=== PATIENT | male | born 1955 | race Caucasian/White ===

== ENCOUNTER 2016-04-24 06:11 | Day surgery (SDC) | payer MEDICARE, BC ==
[~2016-04-24] VITALS: Ht 175.3 cm; Wt 84.1 kg
[~2016-04-24 06:11] MED LIST: HYDROCODON-ACE1 EAC7 PO
[2016-04-24] MEDS ORDERED: OMEPRAZOLE20 M1 PO (07:05)
[2016-04-24 07:08] VITALS: BP 129/82; Ht 175.3 cm; Wt 84.1 kg
[2016-04-24 07:16] LABS: HEMATOCRIT 44.7 % (42.0-54.0); MCH 30.1 pg (26.0-34.0); MCHC 33.6 g/dL (31.0-37.0); MCV 89.6 fL (80.0-100.0); MEAN PLATELET VOLUME 10.4 fL (7.4-10.4); RBC 4.99 10x6/uL (4.20-6.10); RDW 13.7 % (11.5-14.5); WBC 6.8 10x3/uL (4.8-10.8)
--- NOTE | 2016-04-24 09:04 | NUR ---
PAD TO RIGHT THIGH LOT NUMBER [id number] EXPIRES 2018-01-19
--- NOTE | 2016-04-24 10:48 | NUR ---
0945 IV DC WITH CATHER TIP INTACT
--- NOTE | 2016-06-01 09:40 | OP ---
PATIENT NAME: KAEL HUANG MEDICAL RECORD: [id number] :51 LOCATION:[facility] ADMISSION DATE: SURGEON: PIERRE FUCHS MD DATE OF OPERATION: 04/24/2016 PREOPERATIVE DIAGNOSIS: History of Gates esophagus. 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 I noted no residual of Gates's esophagus. Nodular duodenitis, mild. One gastric polyp, cardial, 7 mm x 6 mm sessile. PROCEDURE: 1. Esophagogastroduodenoscopy with antral and distal esophageal biopsies. 2. Gastric hot biopsy forceps polypectomy times 1. SURGEON: Pierre Fuchs MD CHEMICAL OPERATIONS SPECIALIST: None. BLOOD LOSS: Minimal. ANESTHESIA: Topical with IV anesthesia. COMPLICATIONS: None. The reason for the anesthesia staff being present during the procedure includes the possible need for airway manipulation, which was necessary during the procedure. The patient underwent endoscopy by me on 01/13/2015. At that time, the patient was found to have LA grade I distal esophagitis and I felt that he was a rule out Gates's patient. There was a questionable gastric polyp along the lesser curve at that time as well. The patient was placed on Nexium. The patient had adenomatous polyps at the time of colonoscopy, so his next colonoscopy should be in 3 years, which will be in 2018. The distal esophageal biopsies were consistent with Gates esophagus with mild chronic inflammation and negative for dysplasia. ENDOSCOPIC COURSE: The patient was conveyed to endoscopy suite electively on 04/24/2016. IV sedation was induced by the anesthesia staff. A topical spray anesthetic was used to anesthetize the oropharynx. A bite block was inserted. A gastroscope was inserted into the mouth. It was advanced easily into the hypopharynx. The esophagus was easily intubated as were the stomach and the duodenum. Upon withdrawal, retroflexed and angulus views were obtained. Antral biopsies were obtained. Distal esophageal biopsies were obtained. Within the stomach, a gastric polyp was noted. This was removed in its entirety utilizing a hot biopsy forceps polypectomy technique. The endoscope was then withdrawn under direct vision. I will see the patient back in my office in 2-3 weeks. I will plan for his next surveillance upper endoscopy to be in 2 years. His next colonoscopy needs to be in 2018 and this will be a surveillance colonoscopy. He needs to continue on PPI therapy as it appears to be improving his esophagitis, which I noted that there was none during today's endoscopy. Additionally, I saw a regression of OPERATIVE REPORT [id number] KAEL HUANG A Gates's. In fact, I identified no Gates's utilizing direct imaging or narrow band imaging. TRANSINT:[id number] Voice Confirmation ID: [id number] DOCUMENT ID: [id number] PIERRE FUCHS MD at 0940 CC: LOYDA CHIN DO [id number] DICTATION DATE: 04/24/16901 BID WRITER: 04/24/16 1534 [facility] 04/24/16 [place] [id number] [place] [address]
--- NOTE | 2016-06-01 09:40 | HP ---
PATIENT: KAEL HUANG MEDICAL RECORD: [id number] ACCOUNT: [id number] LOCATION:[facility] : 51 ADMISSION DATE: 04/24/16 HISTORY AND PHYSICAL EXAMINATION CHIEF COMPLAINT: Gates's esophagus. The patient is here for surveillance endoscopy. HISTORY OF PRESENT ILLNESS: The patient has been on omeprazole. His reflux is controlled on omeprazole. He is here for surveillance upper endoscopy with biopsies due to the history of Gates's. The risks, possible complications and alternatives of the procedure were explained to the patient. He elects to proceed. ALLERGIES: No known drug allergies. HOME MEDICATIONS: [place] as well as omeprazole. SOCIAL HISTORY: Nonsmoker. PAST MEDICAL AND SURGICAL HISTORY: Neck fusion at C5-C6, eye surgery, arthritis, gastroesophageal reflux. REVIEW OF SYSTEMS: Negative for CVA or seizures. Negative for diabetes or thyroid problems. Negative for renal disease or hepatitis. The review of systems is negative other than as is described above. PHYSICAL EXAMINATION: GENERAL: The patient does not appear acutely ill. He does not appear chronically ill. VITAL SIGNS: Reviewed. HEAD: External ears appear normal. EYES: Extraocular movements are intact. NECK: Trachea is midline. CHEST: No intercostal retractions. PULMONARY: Nonlabored and no stridor. IMPRESSION: Gates esophagus. PLAN: Will be surveillance upper endoscopy. TRANSINT:[id number] Voice Confirmation ID: [id number] DOCUMENT ID: [id number] OZZY FUCHS MD at 0940 CC: LOYDA CHIN DO [id number] DICTATION DATE: 04/24/16 0838 DEICER FINISHER: 04/24/16 1033 [facility] 04/24/[address] [address]
== END 2016-04-24 10:45 | disposition home or self-care (01) ==
LOC: D.OPS 06:11
PROVIDERS: Anesthesiology
DX: K22.70 Barrett's esophagus without dysplasia (principal); K29.80 Duodenitis without bleeding; K31.7 Polyp of stomach and duodenum; K21.9 Gastro-esophageal reflux disease without esophagitis; M19.90 Unspecified osteoarthritis, unspecified site; Z79.891 Long term (current) use of opiate analgesic; Z79.899 Other long term (current) drug therapy

== ENCOUNTER 2018-05-14 05:35 | Day surgery (SDC) | payer MEDICARE, BC ==
[~2018-05-14] VITALS: Ht 175.3 cm; Wt 83.9 kg
[~2018-05-14 05:35] MED LIST changes: +MOBIC7.5 MG PO; +OMEPRAZOLE20 M1 PO
[2018-05-14 06:16] LABS: HEMATOCRIT 46.1 % (42.0-54.0); HEMOGLOBIN 15.7 g/dL (13.5-17.5); MCH 30.6 pg (26.0-34.0); MCHC 34.1 g/dL (31.0-37.0); MCV 89.9 fL (80.0-100.0); MEAN PLATELET VOLUME 10.1 fL (7.4-10.4); RBC 5.13 10x6/uL (4.20-6.10); RDW 14.2 % (11.5-14.5); WBC 8.3 10x3/uL (4.8-10.8)
[2018-05-14] MEDS ORDERED: MAGNESIUM OXID500 MG PO (06:36)
[2018-05-14] MEDS ORDERED: VITAMIN D31000 UNI2 PO (06:36)
[2018-05-14 06:37] VITALS: BP 136/77; Ht 175.3 cm; Wt 83.9 kg
== END 2018-05-14 11:45 | disposition home or self-care (01) ==
LOC: D.OPS 05:35 → D.PAN 09:30 → D.OPS 11:45
PROVIDERS: Anesthesiology; ATTEND Surgery
DX: Z86.010 Personal history of colon polyps (principal); K62.5 Hemorrhage of anus and rectum; K21.9 Gastro-esophageal reflux disease without esophagitis; K64.8 Other hemorrhoids; D64.9 Anemia, unspecified

== ENCOUNTER 2020-08-30 10:00 | Day surgery (SDC) | payer MEDICARE, BC ==
[~2020-08-30] VITALS: Ht 175.3 cm; Wt 84.1 kg
[2020-08-30 07:51] LABS: BASOPHILS 0.9 % (0-2); EOSINOPHILS 1.1 % (0-7); HEMATOCRIT 45.6 % (42.0-54.0); HEMOGLOBIN 15.1 g/dL (13.5-17.5); LYMPHOCYTES 25.8 % (15-50); MCH 29.5 pg (26.0-34.0); MCHC 33.2 g/dL (31.0-37.0); MEAN PLATELET VOLUME 7.7 fL (7.4-10.4); MONOCYTES 9.2 % (2-11); PLATELET COUNT 243 10x3/uL (130-400); RBC 5.13 10x6/uL (4.20-6.10); RDW 13.9 % (11.5-14.5); WBC 9.1 10x3/uL (4.8-10.8)
[2020-08-30 08:05] LABS: CALC OSMOLALITY 279 mosm/kg (275-300); CARBON DIOXIDE 25.7 mmol/L (21.0-32.0); CHLORIDE - SERUM 106 mmol/L (98-107); CREATININE - SERUM 0.9 mg/dL (0.6-1.3); GLUCOSE 103 mg/dL (74-106); POTASSIUM - SERUM 4.1 mmol/L (3.5-5.1); SODIUM 141 mmol/L (136-145); UREA NITROGEN 11 mg/dL (7-18); eGFR NON AFRICAN AMERICAN 89 mL/min (90-120)
[2020-08-30 09:08] VITALS: BP 113/80; Ht 175.3 cm; Wt 84.1 kg
[~2020-08-30 10:00] MED LIST changes: +MAGNESIUM OXID500 MG PO; +VITAMIN D31000 UNI2 PO
--- NOTE | 2020-08-30 16:10 | NUR ---
1130 UP TO BATHROOM. AMBULATORY WITHOUT DIFFICULTY. VOIDED. BACK TO BED IV DC'ED. DRESSING. Shahla CASTANEDA R.N. 1140 DRESSED, AWAKE, & ALERT. PROVIDED WITH D/C INFORMATION INCLUDING: MED REC., SHEET LISTING NSAIDS TO HOLD., RTC APPT., & [facility] POST ENDOSCOPY D/C INSTRUCTIONS. PT. VOICED UNDERSTANDING. TO PRIVATE CAR PER WHEELCHAIR BY THIS NURSE. HOME WITH MRS. HUANG. Shahla CASTANEDA R.N.
--- NOTE | 2020-08-30 17:53 | HP ---
PATIENT: KAEL HUANG MEDICAL RECORD: [id number] ACCOUNT: [id number] LOCATION:[facility] : 51 ADMISSION DATE: 08/30/20 PCP: LOYDA CHIN DO HISTORY AND PHYSICAL EXAMINATION PREOPERATIVE DIAGNOSIS: Here for endoscopy. HISTORY OF PRESENT ILLNESS: The patient has a history of Gates's esophagus. He is to undergo surveillance endoscopy with biopsies. He also has a history of colon polyps and for that reason, will undergo surveillance colonoscopy. He underwent endoscopic banding of internal hemorrhoids by me several years ago and that improved the hematochezia. The risks, possible complications, and alternatives of the procedure were explained to the patient. He elects to proceed. PAST MEDICAL AND SURGICAL HISTORY: Neck fusion C5-C6, eye surgery, arthritis, gastroesophageal reflux, Gates's esophagus, history of CABG in 2019. REVIEW OF SYSTEMS: Negative for CVA or seizures. Negative for diabetes or thyroid problems. HOME MEDICATIONS: Meloxicam as well as omeprazole. ALLERGIES: No known drug allergies. PHYSICAL EXAMINATION: GENERAL: The patient does not appear acutely ill. He does not appear chronically ill. VITAL SIGNS: Reviewed. EARS: External ears appear normal. EYES: Extraocular movements are intact. NECK: Trachea is midline. CHEST: No intercostal retractions. PULMONARY: Nonlabored. No stridor. IMPRESSION: 1. History of Gates esophagus in need of surveillance upper endoscopy. 2. History of colon polyps. PLAN: As described above. TRANSINT:[id number] Voice Confirmation ID: [id number] DOCUMENT ID: [id number] OZZY FUCHS MD at 1753 CC: LOYDA CHIN DO [id number] DICTATION DATE: 08/30/20 0947 PHARMACY TECHNICIAN INSTRUCTOR: 08/30/20 1115 [facility] 08/30/20 [place] [id number]
--- NOTE | 2020-08-30 17:53 | OP ---
PATIENT NAME: KAEL HUANG MEDICAL RECORD: [id number] :51 LOCATION:D[facility] ADMISSION DATE: SURGEON: PIERRE FUCHS MD DATE OF OPERATION: 08/30/2020 PREOPERATIVE DIAGNOSES: 1. History of Gates's esophagus, in need of surveillance upper endoscopy with biopsies. 2. History of colon polyps, in need of surveillance colonoscopy. POSTOPERATIVE DIAGNOSES: 1. History of Gates's esophagus, in need of surveillance upper endoscopy with biopsies. 2. History of colon polyps, in need of surveillance colonoscopy. 3. Mild proximal duodenitis. 4. No colonic polyps or masses. PROCEDURE: 1. Esophagogastroduodenoscopy with antral and distal esophageal biopsies. 2. Total colonoscopy to cecum. SURGEON: Pierre Fuchs MD DIRECTOR OF WEB MARKETING: None. BLOOD LOSS: Minimal. ANESTHESIA: IV sedation. COMPLICATIONS: None. The risks, possible complications and alternatives of the procedure were explained to the patient. He elects to proceed. The discussion specifically included, but was not limited to, bleeding requiring emergency reoperation, infection, endoscopic perforation. ENDOSCOPIC COURSE: The patient was conveyed to the endoscopy suite electively on 08/30/2020. IV sedation was induced by the anesthesia staff. A bite block was inserted. A gastroscope was inserted into the oropharynx. It was advanced into the hypopharynx. The esophagus was easily intubated as were the stomach and duodenum. Upon withdrawal, retroflexed and angulus views were obtained. Antral biopsies were obtained to rule out H. pylori. Distal esophageal biopsies were obtained at the Z-line. The endoscope was then withdrawn under direct vision. The patient was turned 180 degrees and placed in the Perez position. A digital rectal examination was performed. The prostate was slightly enlarged and firm, but without nodules. A colonoscope was inserted through the anus. It was easily advanced to the cecum. The prep was adequate. I slowly withdrew the endoscope. I irrigated and aspirated extensively. I dragged the folds. I noted no colonic polyps or masses. A combination of normal imaging and narrow band imaging were utilized. A retroflexed view was obtained in the rectum. I then unretroflexed the scope and removed it under direct vision. I will see the patient in my office in 2 to 3 weeks. I am going to plan for his OPERATIVE REPORT [id number] KAEL HUANG next surveillance upper and lower endoscopy to take place as a combined procedure in 3 years. TRANSINT:[id number] Voice Confirmation ID: [id number] DOCUMENT ID: [id number] PIERRE FUCHS MD at 1753 CC: LOYDA CHIN DO [id number] DICTATION DATE: 08/30/20 1045 HEALTH RECORD TECHNICIAN: 08/30/20 1247 [facility] 08/30/20 [place] [id number] [place] [id number]
== END 2020-08-30 11:40 | disposition home or self-care (01) ==
LOC: D.OPS 10:00
PROVIDERS: Anesthesiology; ATTEND Surgery
DX: Z86.010 Personal history of colon polyps (principal); K22.70 Barrett's esophagus without dysplasia; K29.80 Duodenitis without bleeding; Z95.1 Presence of aortocoronary bypass graft